=== PATIENT | female | born 1950 | race Caucasian/White ===

== ENCOUNTER 2024-06-08 16:08 | Inpatient (IN) | payer MEDICARE ==
[~2024-06-08] VITALS: Ht 165.1 cm; Wt 63.0 kg
[2024-06-08] VITALS (9 sets, daily range): BP systolic 143–159; BP diastolic 89–126; TEMP 98.8; O2SAT 90–100
[2024-06-08] MEDS: IV NS 0.9% 1,000 ML BAG IV ONE (14:55)
[2024-06-08 17:16] LABS: BASOPHILS % (AUTO) 0.3 % (0.0-2.0); EOSINOPHILS % (AUTO) 0.2 % (0.0-6.0); HEMATOCRIT 36 % (33-45); LYMPHOCYTES # (AUTO) 1.2 K/uL (0.8-4.8); MEAN CORPUSCULAR HEMOGLOBIN 32 PG (26.0-33.0); MEAN CORPUSCULAR HGB CONC 34 g/dl (31.0-36.0); MEAN CORPUSCULAR VOLUME 95 fL (82-100); MONOCYTES # (AUTO) 0.5 K/uL (0.1-1.30); MONOCYTES % (AUTO) 4.5 % (2.0-12.0); NEUTROPHILS # (AUTO) 10.2 K/uL (1.8-8.9); PLATELET COUNT (AUTO) 472 K/uL (150-450); RED BLOOD CELL COUNT(AUTO) 3.78 MIL/uL (4.0-5.2); RED CELL DISTRIBUTION WIDTH 12.9 % (11.5-15.0)
[2024-06-08 17:42] LABS: ALANINE AMINOTRANSFERASE 21 U/L (12-78); ALBUMIN 3.6 g/dL (3.4-5.0); ALKALINE PHOSPHATASE 81 U/L (46-116); ASPARTATE AMINOTRANSFERASE 18 U/L (15-37); BILIRUBIN,DIRECT 0.1 mg/dL (0.0-0.2); BILIRUBIN,TOTAL 0.5 mg/dL (0.2-1.0); CALCIUM, SERUM 9.3 mg/dL (8.5-10.1); CARBON DIOXIDE 25 mmol/L (21-32); CHLORIDE 85 mmol/L (98-107); CREATININE 0.5 mg/dL (0.6-1.3); GLUCOSE 126 mg/dL (74-106); POTASSIUM 4.3 mmol/L (3.5-5.1); TOTAL PROTEIN, SERUM 6.4 g/dL (6.4-8.2); UREA NITROGEN, BLOOD 4 mg/dL (7-18)
[2024-06-08] MEDS: LORAZEPAM INJ 2 MG/ML VIAL IV ONE ×2 (17:44→18:20)
[2024-06-08] MEDS ORDERED: LORAZEPAM INJ 2 MG/ML VIAL ONE ×2 (17:44→18:17)
[2024-06-08 17:47] LABS: ALCOHOL, BLOOD < 10 mg/dL (0-10); SODIUM SERUM 120 mmol/L (136-145)
[2024-06-08] MEDS: LEVETIRACETAM (500MG) 1,500 MG in IV NS 0.9% 85 ML IV SCH (17:55)
[2024-06-08 18:07] LABS: INR 0.97 (0.91-1.10); PARTIAL THROMBOPLASTIN TIME 26.4 SEC (24.3-34.3); PROTHROMBIN TIME 10.3 SECS (9.2-11.1)
[2024-06-08] MEDS ORDERED: DICL100G34 TP (18:43)
[2024-06-08] MEDS ORDERED: LIDO30AD10 TP (18:43)
[2024-06-08] MEDS ORDERED: PRAV20TA4 PO (18:43)
[2024-06-08] MEDS ORDERED: LISI40TA13 PO (18:43)
[2024-06-08] MEDS ORDERED: DULO60CA45 PO (18:43)
[2024-06-08] MEDS ORDERED: LEVO125T8 PO (18:43)
[2024-06-08] MEDS ORDERED: TRAZ-257 PO (18:43)
[2024-06-08] MEDS ORDERED: EZET10TA15 PO (18:43)
[2024-06-08] MEDS ORDERED: SUMA50TA PO (18:43)
[2024-06-08] MEDS ORDERED: BUDE3CAP8 PO (18:43)
[2024-06-08] MEDS ORDERED: FURO-144 PO (18:43)
[2024-06-08] MEDS ORDERED: HYDR-3980 MT (18:57)
[2024-06-08 19:36] LABS: APPEARANCE,URINE CLEAR (CLEAR); BILIRUBIN,URINE NEGATIVE (NEGATIVE); BLOOD, URINE NEGATIVE Ery/uL (NEGATIVE); COLOR,URINE YELLOW (YELLOW); KETONES,URINE 1+ mg/dL (NEGATIVE); LEUKOCYTE ESTERASE ,URINE NEGATIVE (NEGATIVE); NITRITE, URINE NEGATIVE (NEGATIVE); PROTEIN,URINE NEGATIVE (NEGATIVE); UGLUCOSE NEGATIVE (NEGATIVE); UROBILINOGEN,URINE 0.2 EU/dL (0.2)
[2024-06-08 19:51] LABS: ADD URINE CULTURE NO
[2024-06-08 19:57] LABS: AMPHETAMINE, URINE NEGATIVE (NEGATIVE); BARBITURATE, URINE NEGATIVE (NEGATIVE); BENZODIAZEPINE, URINE NEGATIVE (NEGATIVE); CANNABINOID, URINE NEGATIVE (NEGATIVE); COCCAINE, URINE NEGATIVE (NEGATIVE); PHENCYCLIDINE SCREEN,URINE NEGATIVE (NEGATIVE)
[2024-06-08 19:58] LABS: OPIATE, URINE POSITIVE (NEGATIVE)
[2024-06-08] MEDS ORDERED: ZOLPIDEM TARTRATE 5 MG TABLET PO PRN (20:00)
[2024-06-08] MEDS ORDERED: ONDANSETRON HCL/PF 4 MG/2 ML VIAL IVP PRN (20:00)
[2024-06-08] MEDS ORDERED: Z GUARD REMEDY 4 OZ OINT TP PRN (20:00)
[2024-06-08] MEDS ORDERED: MAGNESIUM HYDROXIDE 30 ML UDC PO PRN (20:00)
[2024-06-08] MEDS ORDERED: MAG HYDROX/AL HYDROX/SIMETH 30 ML UDC PO PRN (20:00)
[2024-06-08 20:31] LABS: CALCIUM, SERUM 8.3 mg/dL (8.5-10.1); CARBON DIOXIDE 24 mmol/L (21-32); CHLORIDE 90 mmol/L (98-107); CREATININE 0.6 mg/dL (0.6-1.3); GLUCOSE 116 mg/dL (74-106); POTASSIUM 4.1 mmol/L (3.5-5.1); SODIUM SERUM 121 mmol/L (136-145); UREA NITROGEN, BLOOD 4 mg/dL (7-18)
[2024-06-08] MEDS: LORAZEPAM INJ 2 MG/ML VIAL IV PRN (20:55)
[2024-06-08] MEDS: LORAZEPAM INJ 2 MG/ML VIAL IV STA (21:51)
[2024-06-08] MEDS: ENOXAPARIN SODIUM 40 MG/0.4 ML DISP.SYRIN SQ SCH (21:59)
[2024-06-08] MEDS ORDERED: IV Sodium Chloride 3% 500 ML 500 ML IV ONE (22:00)
[2024-06-08] MEDS ORDERED: LORAZEPAM 4 MG/ML VIAL IV ONE (22:00)
[2024-06-08] MEDS: OLANZAPINE 10 MG VIAL IM ONE (22:53)
[2024-06-08] MEDS ORDERED: LEVETIRACETAM (500MG) 500 MG/5 ML VIAL IV ONE (23:00)
[2024-06-08] MEDS: LEVETIRACETAM (500MG) 1,000 MG in IV NS 0.9% 90 ML IV SCH (23:20)
[2024-06-09] VITALS (46 sets, daily range): BP systolic 105–167; BP diastolic 69–138; TEMP 98–98.3; O2SAT 91–100
[2024-06-09] MEDS: IV NS 0.9% 1,000 ML IV PRN (00:28)
[2024-06-09] MEDS ORDERED: IV NS 0.9% 1,000 ML BAG IV PRN (00:30)
[2024-06-09] MEDS ORDERED: IV Sodium Chloride 3% 500 ML 500 ML IV ONE (00:38)
[2024-06-09] MEDS: IV Sodium Chloride 3% 500 ML 500 ML IV ONE (00:45)
[2024-06-09 03:00] LABS: BASOPHILS # (AUTO) 0.1 K/uL (0.0-0.2); BASOPHILS % (AUTO) 0.6 % (0.0-2.0); HEMATOCRIT 34 % (33-45); HEMOGLOBIN 11.3 g/dL (11.5-14.8); LYMPHOCYTES # (AUTO) 1.5 K/uL (0.8-4.8); LYMPHOCYTES % (AUTO) 5.8 % (20.0-44.0); MEAN CORPUSCULAR HEMOGLOBIN 32 PG (26.0-33.0); MEAN CORPUSCULAR HGB CONC 33 g/dl (31.0-36.0); MEAN CORPUSCULAR VOLUME 94 fL (82-100); MONOCYTES # (AUTO) 1.8 K/uL (0.1-1.30); MONOCYTES % (AUTO) 7.2 % (2.0-12.0); NEUTROPHILS % (AUTO) 86.4 % (43.0-81.0); PLATELET COUNT (AUTO) 475 K/uL (150-450); RED CELL DISTRIBUTION WIDTH 13.1 % (11.5-15.0); WHITE BLOOD COUNT (AUTO) 25.5 K/uL (4.3-11.0)
[2024-06-09 03:10] LABS: CALCIUM, SERUM 8.8 mg/dL (8.5-10.1); CARBON DIOXIDE 24 mmol/L (21-32); CHLORIDE 95 mmol/L (98-107); CREATININE 0.7 mg/dL (0.6-1.3); GLUCOSE 109 mg/dL (74-106); MAGNESIUM 1.5 mg/dL (1.8-2.4); PHOSPHORUS 3.2 mg/dL (2.5-4.9); POTASSIUM 3.9 mmol/L (3.5-5.1); SODIUM SERUM 127 mmol/L (136-145); UREA NITROGEN, BLOOD 6 mg/dL (7-18)
[2024-06-09] MEDS: LEVETIRACETAM (500MG) 1,000 MG in IV NS 0.9% 90 ML IV SCH (08:00)
[2024-06-09] MEDS: Magnesium 1GM/D5W 100ML PREMIX 100 ML IV SCH (08:47)
[2024-06-09] MEDS: PANTOPRAZOLE 40 MG VIAL IV SCH (08:47)
[2024-06-09] MEDS: IV D5/ 0.9% NACL 1,000 ML IV PRN (08:54)
[2024-06-09 12:56] LABS: THYROID STIMULATING HORMONE 0.93 uIU/mL (0.358-3.74)
[2024-06-09] MEDS ORDERED: hydrALAZINE HCL IV 20 MG VIAL IV PRN (13:00)
[2024-06-09] MEDS: IV D5W 1,000 ML IV PRN (14:07)
[2024-06-09] MEDS: KETOROLAC TROMETHAMINE 15 MG/ML VIAL IV PRN (17:07)
[2024-06-09 18:19] LABS: CALCIUM, SERUM 8.5 mg/dL (8.5-10.1); CARBON DIOXIDE 23 mmol/L (21-32); CHLORIDE 101 mmol/L (98-107); CREATININE 0.6 mg/dL (0.6-1.3); GLUCOSE 111 mg/dL (74-106); POTASSIUM 3.2 mmol/L (3.5-5.1); SODIUM SERUM 132 mmol/L (136-145); UREA NITROGEN, BLOOD 4 mg/dL (7-18)
[2024-06-09 19:30] LABS: URINE SODIUM, RANDOM 34 mmol/l (40-220)
[2024-06-10] VITALS (15 sets, daily range): BP systolic 99–159; BP diastolic 19–94; TEMP 98; O2SAT 92–98
[2024-06-10 04:47] LABS: BASOPHILS % (AUTO) 0.2 % (0.0-2.0); EOSINOPHILS # (AUTO) 0.1 K/uL (0.0-0.7); EOSINOPHILS % (AUTO) 0.9 % (0.0-6.0); HEMATOCRIT 30 % (33-45); LYMPHOCYTES # (AUTO) 2.3 K/uL (0.8-4.8); LYMPHOCYTES % (AUTO) 18.8 % (20.0-44.0); MEAN CORPUSCULAR HEMOGLOBIN 32 PG (26.0-33.0); MEAN CORPUSCULAR HGB CONC 33 g/dl (31.0-36.0); MEAN CORPUSCULAR VOLUME 95 fL (82-100); MONOCYTES # (AUTO) 1.2 K/uL (0.1-1.30); MONOCYTES % (AUTO) 9.6 % (2.0-12.0); NEUTROPHILS # (AUTO) 8.6 K/uL (1.8-8.9); NEUTROPHILS % (AUTO) 70.5 % (43.0-81.0); PLATELET COUNT (AUTO) 420 K/uL (150-450); RED BLOOD CELL COUNT(AUTO) 3.17 MIL/uL (4.0-5.2); RED CELL DISTRIBUTION WIDTH 13.1 % (11.5-15.0); WHITE BLOOD COUNT (AUTO) 12.2 K/uL (4.3-11.0)
[2024-06-10 05:01] LABS: CALCIUM, SERUM 8.4 mg/dL (8.5-10.1); CARBON DIOXIDE 24 mmol/L (21-32); CHLORIDE 100 mmol/L (98-107); CREATININE 0.7 mg/dL (0.6-1.3); GLUCOSE 111 mg/dL (74-106); MAGNESIUM 1.9 mg/dL (1.8-2.4); POTASSIUM 3.2 mmol/L (3.5-5.1); SODIUM SERUM 131 mmol/L (136-145); UREA NITROGEN, BLOOD 4 mg/dL (7-18)
[2024-06-10] MEDS: ACETAMINOPHEN 325 MG TABLET PO PRN (07:37)
[2024-06-10] MEDS: LEVOTHYROXINE SODIUM 125 MCG TABLET PO SCH (07:38)
[2024-06-10] MEDS: FUROSEMIDE 40 MG TABLET PO SCH (08:23)
[2024-06-10] MEDS: LISINOPRIL (20MG) 20 MG TABLET PO SCH (08:23)
[2024-06-10] MEDS: LIDOCAINE 5% (PATCH) 1 EA PATCH TP SCH (08:24)
[2024-06-10] MEDS: BUDESONIDE 3 MG PO SCH (08:27)
[2024-06-10 08:37] LABS: CHOLESTEROL 189 mg/dL (<200); HDL CHOLESTEROL 58 mg/dL (40-60); LDL 90 mg/dL (0-99); TRIGLYCERIDES 152 mg/dL (30-150)
[2024-06-10] MEDS ORDERED: BUDESONIDE 3 MG CAP.SR.24H PO SCH (09:00)
[2024-06-10 10:10] LABS: FOLIC ACID 11.7 ng/mL (>3.0)
[2024-06-10] MEDS ORDERED: POTASSIUM CHLORIDE 20 MEQ TAB.PRT.SR PO SCH (10:30)
[2024-06-10] MEDS: POTASSIUM CHLORIDE 20 MEQ TAB.PRT.SR PO ONE (11:09)
[2024-06-10 17:34] LABS: OSMOLALITY,URINE 174 mOS/kg (340-1090)
[2024-06-10] MEDS ORDERED: LEVETIRACETAM (250 MG) 250 MG TABLET PO SCH ×2 (21:00)
[2024-06-11] MEDS ORDERED: PANTOPRAZOLE 40 MG TABLET.DR PO SCH (09:00)
[2024-06-13 06:22] LABS: FOLIC ACID 9.6 ng/mL (>3.0)
[2024-06-15 13:07] LABS: VITAMIN B1 THIAMINE,WB 107.8 nmol/L (66.5-200.0)
[2024-06-16 07:08] LABS: VITAMIN B1 THIAMINE,WB 73.4 nmol/L (66.5-200.0)
== END 2024-06-10 13:06 | disposition left against medical advice (07) | DRG 643 ==
LOC: ER 16:10 → ICU 20:05
PROVIDERS: ADMIT Student in an Organized Health Care Education/Training Program; ATTEND Student in an Organized Health Care Education/Training Program
DX: E22.2 Syndrome of inappropriate secretion of antidiuretic hormone (principal); G93.41 Metabolic encephalopathy; J96.01 Acute respiratory failure with hypoxia; R56.9 Unspecified convulsions; I10 Essential (primary) hypertension; D75.839 Thrombocytosis, unspecified; D72.829 Elevated white blood cell count, unspecified; E03.9 Hypothyroidism, unspecified; E78.5 Hyperlipidemia, unspecified; E83.42 Hypomagnesemia; G89.4 Chronic pain syndrome; Z53.29 Procedure and treatment not carried out because of patient's decision for other reasons; Z87.891 Personal history of nicotine dependence; Z91.81 History of falling; Z79.891 Long term (current) use of opiate analgesic
CPT/HCPCS: 36415; 70450-TC; 71045-TC; 80048-TC; 80061-TC; 80076-TC; 81001; 82607-TC; 82962-TC; 83735-TC; 83921; 83935-TC; 84100-TC; 84295-TC; 84300-TC; 84425; 84443-TC; 84550-TC; 85025-TC; 85730-TC; 87081-TC; 95819-TC; A4223; A6403; G0378; G0480; J1650; J1885; J1953; J2060; J2470; J3475; J3490; J7030; J7042; J7050; J7070